=== PATIENT | male | born 1990 | race Caucasian/White ===

== ENCOUNTER 2018-04-10 13:29 | Emergency (ER) | payer SELFPAY ==
[~2018-04-10] VITALS: Ht 172.7 cm; Wt 75.9 kg
[2018-04-10 13:42] VITALS: Ht 172.7 cm; Wt 75.9 kg
[2018-04-10] MEDS ORDERED: LITHIUM CARBON300 MG PO (13:45)
[2018-04-10] MEDS ORDERED: AUGMENTIN 875-11 TAB PO (18:04)
[2018-04-10] MEDS ORDERED: CLARITIN 10 MG10 MG PO (18:04)
[2018-04-10 19:08] VITALS: BP 133/81
== END 2018-04-10 19:07 | disposition home or self-care (01) ==
LOC: D.ER 13:29
DX: J01.90 Acute sinusitis, unspecified (principal)